=== PATIENT | male | born 1945 | race Caucasian/White ===

== ENCOUNTER 2017-11-29 16:52 | Observation (INO) | payer OTHER ==
[~2017-11-29] VITALS: Ht 180.3 cm; Wt 119.3 kg
--- NOTE | ~2017-11-29 | EKG ---
[address] [place] [address] ELECTROCARDIOGRAM REPORT Name: SAJAN SCHERER Room #: 359-P 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 : 1945 Requested By: Trevor Pryor Order Number: [id number] MD: Arun Singleton Measurements Intervals [place] Rate: 78 P: 39 WI: 155 QRS: -50 QRSD: 155 T: 24 QT: 402 QTc: 458 Interpretive Statements Sinus rhythm RBBB and LAFB Compared to ECG 08/05/2017 07:02:59 Sinus tachycardia no longer present Electronically Signed On 11-30-2017 7:49:59 WEALTH MANAGEMENT CONSULTANT by Arun Singleton [email or web address] <ELECTRONICALLY SIGNED> By: Arun Singleton MD, [facility] 11/30/17 0749 1659 165 Arun Singleton MD, [facility] /EPI
--- NOTE | ~2017-11-29 | 2DMMODE ---
[place] [address] [email or web address] [place] [address] 2 D/M-MODE ECHOCARDIOGRAM Name: SAJAN SCHERER Room #: 359-P ADM IN M.R.#: [id number] Admission: 11/29/17 Attend Phys: Joseph John MD Discharge: Date of : 41 Date of Service: 11/30/17 1241 Report #: [id number] THIS REPORT FOR: //name// APPROVED REPORT Study performed: 11/30/2017 11:17:11 EXAM: Comprehensive 2D, Doppler, and color-flow Echocardiogram Patient Location: Echo lab Room #: 359 Status: routine BSA: 2.34 HR: 66 bpm BP: 144/70 mmHg Rhythm: NSR/irregular Other Information Study Quality: Adequate Indications Chest pain. Hx: CVA/TIA, HTN, HLP, DM, morbid obesity 2D Dimensions RVDd: 37.60 mm LVEF(%): 55.84 (>50%) IVSd: 9.93 (7-11mm) LVOT Diam: 21.75 (18-24mm) LVDd: 56.51 mm PWd: 11.14 (7-11mm) LVDs: 39.83 (25-40mm) Aortic Root: 35.24 mm Akbar's LVEF: 55.84 % Volumes Left Atrial Volume (Systole) Single Plane 4CH: 58.02 mL Single Plane 2CH: 57.46 mL LA ESV Index: 26.00 mL/m2 Aortic Valve AoV Peak Eyal.: 1.61 m/s AO Peak Gr.: 10.37 mmHg LVOT Max P.58 mmHg LVOT Max V: 0.95 m/s MOMO Vmax: 2.18 cm2 Mitral Valve E/A Ratio: 0.7 MV Decel. Time: 183.30 ms [facility] [place] [address] 2 D/M-MODE ECHOCARDIOGRAM Name: SAJAN SCHERER SHERMAN Room #: 359-P ADM IN M.R.#: [id number] Admission: 11/29/17 Attend Phys: Joseph John MD Discharge: Date of : 41 Date of Service: 11/30/17 1241 Report #: [id number] MV E Max Eyal.: 0.51 m/s MV A Eyal.: 0.72 m/s MV PHT: 53.16 ms IVRT: 96.89 ms Pulmonary Valve PV Peak Eyal.: 0.93 m/s PV Peak Gr.: 3.44 mmHg Tricuspid Valve TR Peak Eyal.: 2.49 m/s RAP Estimate: 5.00 mmHg TR Peak Gr.: 24.78 mmHg PA Pressure: 30.00 mmHg Left Ventricle Left ventricle is at the upper limits of normal. There is normal LV segmental wall motion. There is normal left ventricular wall thickness. Left ventricular systolic function is normal. LVEF is 55-60%. Mild diastolic dysfunction is present (impaired relaxation pattern). Right Ventricle The right ventricle is normal size. The right ventricular systolic function is normal. Atria The left atrium size is normal. Lipomatous hypertrophy of the interatrial septum is noted. The right atrium size is normal. Aortic Valve The aortic valve is moderately calcified Mild aortic regurgitation. There is no aortic valvular stenosis. Mitral Valve The mitral valve is normal in structure. Mild mitral regurgitation. Tricuspid Valve The tricuspid valve is normal in structure. Mild tricuspid regurgitation. Estimated PAP is 30mmHg. Pulmonic Valve The pulmonary valve is normal in structure. Trace pulmonic regurgitation. Great Vessels The aortic root is normal in size. IVC is normal in size and [facility] [address] [place] [address] 2 D/M-MODE ECHOCARDIOGRAM Name: SAJAN SCHERER Room #: 359-P [facility] IN M.R.#: [id number] Admission: 11/29/17 Attend Phys: Joseph John MD Discharge: Date of : 41 Date of Service: 11/30/17 1241 Report #: [id number] collapses >50% with inspiration. Pericardium There is no pericardial effusion. <Conclusion> Left ventricular systolic function is normal. There is normal LV segmental wall motion. LVEF is 55-60%. Mild diastolic dysfunction Lipomatous hypertrophy of the atrial septum The aortic valve is moderately calcified, no stenosis. Mild aortic regurgitation. The mitral valve is normal in structure. Mild mitral regurgitation. Mild tricuspid regurgitation. Estimated pulmonary artery pressure is 30mmHg. There is no pericardial effusion. <ELECTRONICALLY SIGNED> By: Arun Singleton MD, [facility] 11/30/17 1241 1241 1241 Arun Singleton MD, FACC /INF
[~2017-11-29 16:52] MED LIST: ACTOS 45 MG45 M1; ACTOS 45 MG45 M1 PO; ADULT LOW DOSE81 MG PO; ALEVE220 M1 PO; ALEVE220 MG PO; ALLEGRA ALLERG180 MG; ALLEGRA ALLERG180 MG PO; CEFUROXIME500 MG PO; CIPROFLOXACIN250 M2 PO; COREG CR80 MG PO; COREG PO; COREG25 MG PO; CORTISPORIN OTI10 M2; CRESTOR PO; DEPAKOTE ER500 MG PO; DIOVAN HCT 3201 EAC1 PO; DIOVAN PO; DIOVAN320 MG PO; DOCUSATE SODIU100 MG PO; DOXYCYCLINE HY100 MG PO; FLOMAX PO; GLUCOVANCE 5-51 EACH PO; GLYBURID-METFO1 EAC3; GLYCOLAX POWDER17 G1 PO; IRON325 PO; JANUVIA100 MG; JANUVIA100 MG PO; LAMISIL250 MG; LANTUS SC; LASIX 20 MG TAB20 MG PO; LIPITOR 20 MG T20 M1 PO; METFORMIN HCL500 MG PO; METFORMIN PO; OMEPRAZOLE PO; PHENAZOPYRIDIN200 M2; POTASSIUM20 PO; POTASSIUM99 M1 PO; QUETIAPINE FUMA50 MG PO; SEROQUEL 25 MG25 M1 PO; STELAZINE PO; TESSALON PERLE100 MG PO; TRIFLUOPERAZINE1 MG PO; TRIFLUOPERAZINE5 M1 PO; VENTOLIN HFA 1818 GM INH; VICTOZA0.6 MG/0.1 SC; VICTOZA0.6 MG/0.1 SQ; VICTOZA0.6 MG/0.1 SUBQ; VITAMIN D1000 UNI1 PO
[2017-11-29 17:14] VITALS: BP 140/78
[2017-11-29 17:32] LABS: ABSOLUTE NEUTROPHILS 5.3 thou/uL (1.4-8.2); BASOPHILS 0.8 % (0.0-2.0); EOSINOPHILS 1.8 % (0.0-3.0); HEMATOCRIT 43.1 % (42.0-52.0); HEMOGLOBIN 14.5 gm/dL (14.0-18.0); LYMPHOCYTES 26.4 % (24.0-44.0); MCH 29.8 pg (26.0-34.0); MCHC 33.6 g/dL (28.0-37.0); MCV 88.9 fL (80.0-100.0); MONOCYTES 9.6 % (1.0-8.0); PLATELET COUNT 291 thou/uL (150-400); POLYS 61.4 % (36.0-66.0); RBC 4.85 mil/uL (4.50-6.00); RDW 14.2 % (10.5-14.5); WBC 8.6 thou/uL (4.0-11.0)
[2017-11-29 17:43] LABS: ANION GAP 9 mmol/L (7-16); BUN 14 mg/dL (7-18); CALCIUM 8.7 mg/dL (8.5-10.1); CHLORIDE 104 mmol/L (98-107); CO2 25 mmol/L (21-32); CREATININE 1.3 mg/dL (0.7-1.3); GLUCOSE 125 mg/dL (74-106); POTASSIUM 4.2 mmol/L (3.5-5.1); SODIUM 138 mmol/L (136-145)
[2017-11-29 17:52] LABS: ALBUMIN 3.4 g/dL (3.4-5.0); MAGNESIUM 1.2 mg/dL (1.8-2.4); SGOT 18 U/L (15-37); SGPT 24 U/L (30-65); TOTAL BILIRUBIN 0.4 mg/dL (<0.1-1.0); TOTAL PROTEIN 7.1 g/dL (6.4-8.2); TROPONIN-I < 0.04 ng/mL (<0.06)
[2017-11-29 20:38] VITALS: BP 136/72
[2017-11-29 21:00] VITALS: BP 136/78
[2017-11-29 23:30] VITALS: BP 131/70
[2017-11-30 04:10] VITALS: BP 111/71
[2017-11-30 07:02] LABS: ANION GAP 11 mmol/L (7-16); BUN 13 mg/dL (7-18); CALCIUM 8.6 mg/dL (8.5-10.1); CHLORIDE 104 mmol/L (98-107); CHOLESTEROL 122 mg/dL (<200); CO2 23 mmol/L (21-32); CREATININE 1.1 mg/dL (0.7-1.3); GLUCOSE 118 mg/dL (74-106); HDL CHOLESTEROL 37 mg/dL (>40); LDL CHOLESTEROL 59 mg/dL (<100); SODIUM 138 mmol/L (136-145); TC:HDL 3.3 Ratio (Not establshd); TRIGLYCERIDE 130 mg/dL (<150); VLDL 26 mg/dL (<40)
[2017-11-30 07:04] LABS: POTASSIUM 4.3 mmol/L (3.5-5.1)
[2017-11-30 07:09] LABS: MAGNESIUM 2.1 mg/dL (1.8-2.4); TROPONIN-I < 0.04 ng/mL (<0.06)
[2017-11-30 07:50] VITALS: BP 144/70
[2017-11-30] MEDS ORDERED: PEPCID20 MG PO (08:53)
[2017-11-30 12:01] VITALS: BP 139/80
[2017-11-30 19:30] VITALS: BP 128/77
[2017-12-01 04:00] VITALS: BP 134/67
[2017-12-01 07:52] VITALS: BP 137/75
[2017-12-01 09:47] VITALS: BP 137/75
== END 2017-12-01 11:51 | disposition home or self-care (01) ==
LOC: ER 16:52 → EROBS 19:03 → 3W 19:03
PROVIDERS: Emergency Medicine; Nurse Practitioner Family
DX: R07.89 Other chest pain (principal); E11.22 Type 2 diabetes mellitus with diabetic chronic kidney disease; I12.9 Hypertensive chronic kidney disease with stage 1 through stage 4 chronic kidney disease, or unspecified chronic kidney disease; N18.9 Chronic kidney disease, unspecified; E83.42 Hypomagnesemia; E11.42 Type 2 diabetes mellitus with diabetic polyneuropathy; K21.9 Gastro-esophageal reflux disease without esophagitis; M19.90 Unspecified osteoarthritis, unspecified site; E78.5 Hyperlipidemia, unspecified; E78.00 Pure hypercholesterolemia, unspecified; E66.01 Morbid (severe) obesity due to excess calories; R56.9 Unspecified convulsions; F31.9 Bipolar disorder, unspecified; G47.33 Obstructive sleep apnea (adult) (pediatric); Z79.4 Long term (current) use of insulin; Z82.49 Family history of ischemic heart disease and other diseases of the circulatory system; Z87.891 Personal history of nicotine dependence; Z68.36 Body mass index [BMI] 36.0-36.9, adult; Z23 Encounter for immunization